=== PATIENT | female | born 1995 | race Two or more races ===

== ENCOUNTER 2020-02-22 03:27 | Emergency (ER) | payer SELFPAY ==
[~2020-02-22] VITALS: Ht 160 cm; Wt 81.6 kg
[2020-02-22 03:53] VITALS: BP 106/68
== END 2020-02-22 04:47 | disposition home or self-care (01) ==
LOC: ER 03:30
DX: J06.9 Acute upper respiratory infection, unspecified (principal)
CPT/HCPCS: 71045-TC